=== PATIENT | female | born 1965 | race Caucasian/White ===

== ENCOUNTER → 2021-09-16 | Day surgery (SDC) | payer BC ==
[~2021-09-16] MED LIST: HYDROCHLOROTHIA25 MG PO; HYOSCYAMINE SULFATE 0.5 MG/ML INJ ONE; LIDOCAINE HCL 2% LOCAL INJ 5 ML SDV VIAL INJ ONE; MIDAZOLAM HCL 2 MG/2 ML VIAL ONE; OLMESARTAN PO; TRAZODONE HCL50 MG PO
[2021-09-16 13:35] VITALS: BP 140/88
[2021-09-16 15:35] LABS: WBC,FECAL (FECAL LACTOFERRIN) NEGATIVE (NEGATIVE)
== END | disposition home or self-care (01) ==
LOC: OR 11:18
PROVIDERS: ATTEND Internal Medicine Gastroenterology
DX: R19.5 Other fecal abnormalities (principal); D12.2 Benign neoplasm of ascending colon; D12.3 Benign neoplasm of transverse colon; D12.4 Benign neoplasm of descending colon; D12.8 Benign neoplasm of rectum; K64.8 Other hemorrhoids; K63.9 Disease of intestine, unspecified; Z71.3 Dietary counseling and surveillance; I10 Essential (primary) hypertension; Z71.89 Other specified counseling; G47.00 Insomnia, unspecified; F32.A Depression, unspecified; Z88.0 Allergy status to penicillin; Z01.810 Encounter for preprocedural cardiovascular examination; Z01.812 Encounter for preprocedural laboratory examination; Z20.822 Contact with and (suspected) exposure to COVID-19; Z79.899 Other long term (current) drug therapy; Z68.33 Body mass index [BMI] 33.0-33.9, adult
CPT/HCPCS: 0223U; 36415; 45380; 45384; 45385; 83630; 83993; 87045; 87177; 87324; 87328; 87449; 93005; J1980; J2001; J2250; 44391; 45378

== ENCOUNTER → 2022-07-17 | Day surgery (SDC) | payer BC ==
[~2022-07-17] MED LIST changes: +ACETAMINOPHEN 1000 MG/100 ML 100 ML IV ONE; +BUPIVACAINE 0.25% 30ML SDV ONE; +DEXAMETHASONE SOD PHOS 10 MG/1 ML VIAL ONE; +DEXAMETHASONE SOD PHOS INJ 4 MG/ML SDV ONE; +EPHEDRINE SULFATE INJ 50 MG/ML VIAL ONE; +FENTANYL CITRATE/PF 100MCG/2 ML INJ ONE; -HYOSCYAMINE SULFATE 0.5 MG/ML INJ ONE; +KETOROLAC TROMETHAMINE 30 MG/ML VIAL ONE; +LACTATED RINGER'S 1,000 ML ONE; +LIDOCAINE 1% W/EPINEPHRINE 20 ML VIAL ONE; +LIDOCAINE HCL 1% LOCAL INJ 20 ML VIAL ONE; -MIDAZOLAM HCL 2 MG/2 ML VIAL ONE; +ONDANSETRON HCL INJ 2MG/ML 2ML 2 MG/ML VIAL ONE; +ONE DAILY COMP1 EACH PO; +OSTEO BI-FLEX1 EAC3 PO; +POVIDONE IODINE 0.05% 0.05 % ML PO ONE; +PROPOFOL IV EMULSION 10 MG/ML 20 ML VIAL ONE; +ROPIVACAINE 0.5% 5 MG/ML 30 ML SDV ONE; +SEVOFLURANE INHAL SOLN 250 ML PEN BTL ONE; +SODIUM CHLORIDE 0.9% 250ML 250 ML ONE; +Vancomycin IV 1 GM VIAL ONE
[2022-07-17 09:10] VITALS: TEMP 97.1
[2022-07-17 09:49] VITALS: BP 149/87; PULSE 80; RESP 18; O2SAT 97
== END | disposition home or self-care (01) ==
LOC: OR 05:52
PROVIDERS: ATTEND Orthopaedic Surgery
DX: S83.231A Complex tear of medial meniscus, current injury, right knee, initial encounter (principal); S83.281A Other tear of lateral meniscus, current injury, right knee, initial encounter; M84.451A Pathological fracture, right femur, initial encounter for fracture; M22.41 Chondromalacia patellae, right knee; M67.51 Plica syndrome, right knee; G47.33 Obstructive sleep apnea (adult) (pediatric); I10 Essential (primary) hypertension; K28.9 Gastrojejunal ulcer, unspecified as acute or chronic, without hemorrhage or perforation; M54.9 Dorsalgia, unspecified; F17.210 Nicotine dependence, cigarettes, uncomplicated; F17.290 Nicotine dependence, other tobacco product, uncomplicated; X58.XXXA Exposure to other specified factors, initial encounter; Z88.0 Allergy status to penicillin; Z01.810 Encounter for preprocedural cardiovascular examination; Z79.1 Long term (current) use of non-steroidal anti-inflammatories (NSAID); Z79.899 Other long term (current) drug therapy
CPT/HCPCS: 27599; 29880; 93005; C1713; J0131; J1100 ×2; J1885; J2001; J2405; J2704; J2795; J3010; J3370; J7050; J7121; 76000